=== PATIENT | male | born 1945 | race Caucasian/White ===

== ENCOUNTER 2025-04-16 21:37 | Inpatient (IN) | payer OTHER ==
[~2025-04-16] VITALS: Ht 182.9 cm; Wt 90.4 kg
[2025-04-16 22:40] LABS: PLATELET COUNT (AUTO) 210 K/uL (150-450); RED BLOOD CELL COUNT(AUTO) 2.93 MIL/uL (4.5-6.0); RED CELL DISTRIBUTION WIDTH 15.2 % (11.5-15.0); WHITE BLOOD COUNT (AUTO) 7.7 K/uL (4.3-11.0)
[2025-04-16 22:41] LABS: ABG BASE EXCESS 6.4 mmol/L (-2.0-3.0); ABG OXYGEN SATURATION 99.5 % (94.0-98.0); ABG PCO2 55.7 mmHg (35.0-48.0); ABG PH 7.385 (7.350-7.450); ABG PO2 316.7 mmHg (83.0-108.0); ABG TOTAL HEMOGLOBIN 10.0 G/dL (13.5-17.5); FRACTIONATED INSPIRED OXYGEN 100.0 %; PEEP,BG 5 cm H2O; SET RATE, BG 20.0; SITE, ABG LEFT RADIAL; VT, ABG 550 mL
[2025-04-16 22:49] LABS: CALCIUM, SERUM 9.7 mg/dL (8.5-10.1); CREATININE 0.7 mg/dL (0.6-1.3); SODIUM SERUM 136 mmol/L (136-145); UREA NITROGEN, BLOOD 28 mg/dL (7-18)
[2025-04-16 22:49] LABS: APPEARANCE,URINE SLIGHTLY CLOUDY (CLEAR); BLOOD, URINE 3+ Ery/uL (NEGATIVE); LEUKOCYTE ESTERASE ,URINE TRACE (NEGATIVE); NITRITE, URINE NEGATIVE (NEGATIVE); UGLUCOSE NEGATIVE (NEGATIVE)
[2025-04-16 22:53] LABS: INR 1.18 (0.91-1.10)
[2025-04-16 23:05] LABS: ADD URINE CULTURE YES; SQUAMOUS EPITHELIAL CELL,UR 0-2 /HPF (None Seen); YEAST,URINE Moderate /HPF (None Seen)
[2025-04-16 23:10] LABS: LACTIC ACID 1.3 mmol/L (0.4-2.0)
[2025-04-16] MEDS ORDERED: AZITHROMYCIN 500 MG VIAL ONE (23:21)
[2025-04-16] MEDS ORDERED: CEFTRIAXONE 1GM BAG (ER ONLY) 50 ML IV ONE (23:21)
[2025-04-16] MEDS ORDERED: ASPIRIN 300 MG/SUPP.RECT RC ONE (23:22)
[2025-04-16] MEDS: CEFTRIAXONE 1GM BAG (ER ONLY) 1 GM/50 ML PIGGYBACK IV ONE (23:24)
[2025-04-16] MEDS: IV NS 0.9% 500 ML BAG IV ONE (23:24)
[2025-04-16] MEDS: ASPIRIN 300 MG/SUPP.RECT RC ONE (23:25)
[2025-04-16 23:46] LABS: ASPARTATE AMINOTRANSFERASE 27 U/L (15-37); TOTAL PROTEIN, SERUM 6.6 g/dL (6.4-8.2)
[2025-04-17] MEDS ORDERED: ONDANSETRON HCL/PF 4 MG/2 ML VIAL IVP PRN
[2025-04-17] MEDS ORDERED: MAGNESIUM HYDROXIDE 30 ML UDC PO PRN
[2025-04-17] MEDS ORDERED: MAG HYDROX/AL HYDROX/SIMETH 30 ML UDC PO PRN
[2025-04-17] MEDS: AZITHROMYCIN 500 MG in IV D5W 250 ML IV ONE (00:05)
[2025-04-17] MEDS: HEPARIN SODIUM, PORCINE 5000 UNITS/1 ML VIAL SQ SCH (00:30)
[2025-04-17] MEDS ORDERED: HEPARIN SODIUM, PORCINE 5000 UNITS/1 ML VIAL ONE (05:18)
[2025-04-17 05:29] LABS: PLATELET COUNT (AUTO) 233 K/uL (150-450); RED BLOOD CELL COUNT(AUTO) 2.72 MIL/uL (4.5-6.0); RED CELL DISTRIBUTION WIDTH 14.9 % (11.5-15.0); WHITE BLOOD COUNT (AUTO) 6.2 K/uL (4.3-11.0)
[2025-04-17 05:54] LABS: ASPARTATE AMINOTRANSFERASE 22.0 U/L (15-37); CALCIUM, SERUM 9.5 mg/dL (8.5-10.1); CREATININE 0.6 mg/dL (0.6-1.3); NT-PRO BNP 4445.0 pg/mL (0-125); PHOSPHORUS 2.8 mg/dL (2.5-4.9); SODIUM SERUM 136.0 mmol/L (136-145); TOTAL PROTEIN, SERUM 6.4 g/dL (6.4-8.2); UREA NITROGEN, BLOOD 27.0 mg/dL (7-18)
[2025-04-17] MEDS ORDERED: TRAM50TA2 GT (08:32)
[2025-04-17] MEDS ORDERED: MULT-754 GT (08:32)
[2025-04-17] MEDS ORDERED: GABA250S2 GT (08:32)
[2025-04-17] MEDS ORDERED: [UNRECOGNIZED DRUG - OTHER] GT (08:32)
[2025-04-17] MEDS ORDERED: DIABETISOURCE GT (08:32)
[2025-04-17] MEDS ORDERED: APIX5TAB GT (08:32)
[2025-04-17] MEDS ORDERED: POLY17PO4 GT (08:32)
[2025-04-17] MEDS ORDERED: BISA10SU11 RC (08:32)
[2025-04-17] MEDS ORDERED: ZINC1CAP3 GT (08:32)
[2025-04-17] MEDS ORDERED: ATOR40TA GT (08:32)
[2025-04-17] MEDS ORDERED: ASCO500L2 GT (08:32)
[2025-04-17] MEDS ORDERED: TRAZ-182 GT (08:32)
[2025-04-17] MEDS ORDERED: PANT40SU2 GT (08:32)
[2025-04-17] MEDS ORDERED: FURO-144 GT (08:32)
[2025-04-17] MEDS ORDERED: MAGN400O6 GT (08:32)
[2025-04-17] MEDS ORDERED: NA P133E RC (08:32)
[2025-04-17] MEDS ORDERED: MIDO5TAB4 GT (08:32)
[2025-04-17] MEDS ORDERED: INDO50CA91 GT (08:32)
[2025-04-17] MEDS ORDERED: ACET-2070 GT (08:32)
[2025-04-17] MEDS ORDERED: OXYC5TAB3 GT (08:32)
[2025-04-17] MEDS ORDERED: TERA2CAP4 GT (08:32)
[2025-04-17] MEDS ORDERED: SENN-291 GT (08:32)
[2025-04-17] MEDS ORDERED: CHLO473M2 MM (08:32)
[2025-04-17] MEDS ORDERED: ALBU2.5V38 IH ×2 (08:32)
[2025-04-17] MEDS ORDERED: CEFT2VIA64 IV (08:32)
[2025-04-17] MEDS ORDERED: AMIO400T5 GT (08:32)
[2025-04-17] MEDS ORDERED: POTASSIUM GT (08:32)
[2025-04-17] MEDS ORDERED: METO25TA6 GT (08:32)
[2025-04-17] MEDS: PANTOPRAZOLE 40 MG VIAL IV SCH (09:44)
[2025-04-17 09:56] VITALS: BP 119/73; TEMP 99.9; O2SAT 99
[2025-04-17] MEDS ORDERED: DEXTROSE 50%-WATER 50 ML DISP.SYRIN IV PRN (10:30)
[2025-04-17] MEDS ORDERED: MAGNESIUM HYDROXIDE 30 ML UDC GT PRN (10:30)
[2025-04-17] MEDS ORDERED: IPRATROPIUM NEB FS 0.5 MG/2.5 ML AMPUL.NEB NEB PRN ×2 (10:30)
[2025-04-17] MEDS ORDERED: oxyCODONE/APAP (5/325 MG) 1 UDTAB TABLET GT PRN (10:30)
[2025-04-17] MEDS ORDERED: ALBUTEROL FS 2.5 MG/3 ML VIAL.NEB NEB PRN ×2 (10:30)
[2025-04-17] MEDS ORDERED: NA PHOS,M-B/NA PHOS,DI-BA 1 EA ENEMA RC PRN (10:30)
[2025-04-17] MEDS ORDERED: BISACODYL SUPP (10 MG) 10 MG/SUPP.RECT SUPP.RECT RC PRN (10:30)
[2025-04-17] MEDS ORDERED: TRAMADOL HCL 50 MG TABLET GT PRN (10:30)
[2025-04-17] MEDS ORDERED: INDOMETHACIN 50 MG CAPSULE GT PRN (11:00)
[2025-04-17] MEDS: CEFEPIME 2 GM in IV D5W 100 ML IV SCH (11:58)
[2025-04-17] MEDS: BLOOD SUGAR DIAGNOSTIC 1 EACH STRIP IN SCH (12:02)
[2025-04-17] MEDS: GLUCERNA 1.2 1,000 ML BOTTLE NG PRN (12:13)
[2025-04-17] MEDS ORDERED: INDOMETHACIN 25 MG CAPSULE GT PRN (12:30)
[2025-04-17] MEDS: MIDODRINE HCL (5MG) 5 MG TABLET GT SCH (12:51)
[2025-04-17 13:20] LABS: IRON, SERUM 10.0 ug/dl (50-175)
[2025-04-17 13:36] LABS: LDL 28.0 mg/dL (0-99)
[2025-04-17 16:00] VITALS: BP 100/56; TEMP 100.4; O2SAT 98
[2025-04-17] MEDS: ACETAMINOPHEN 325 MG TABLET PO PRN (16:24)
[2025-04-17] MEDS: NEUTRA PHOS 1 POWD.PACKET GT SCH (16:25)
[2025-04-17] MEDS: SENNOSIDES/DOCUSATE SODIUM 1 TAB TABLET GT SCH (16:25)
[2025-04-17] MEDS: POLYETHYLENE GLYCOL 3350 17 GM POWD.PACK GT SCH (16:25)
[2025-04-17] MEDS: GABAPENTIN 300 MG CAPSULE GT SCH (16:26)
[2025-04-17] MEDS: APIXABAN 5 MG TABLET GT SCH (16:27)
[2025-04-17 20:00] VITALS: BP 91/55; TEMP 99; O2SAT 98
[2025-04-17] MEDS ORDERED: CEFEPIME 1 GM in IV D5W 50 ML IV SCH (21:00)
[2025-04-17] MEDS: METOPROLOL TARTRATE 25 MG TABLET GT SCH (21:00)
[2025-04-17] MEDS ORDERED: CEFTRIAXONE 1 G in IV D5W 50 ML IV SCH (21:00)
[2025-04-17] MEDS: TERAZOSIN HCL 1 MG CAPSULE GT SCH (21:17)
[2025-04-17] MEDS: TRAZODONE 50 MG TABLET GT SCH (21:17)
[2025-04-17] MEDS: ATORVASTATIN 40 MG TABLET GT SCH (21:18)
[2025-04-17] MEDS: AZITHROMYCIN 500 MG in IV D5W 250 ML IV SCH (21:19)
[2025-04-17] MEDS: CHLORHEXIDINE GLUCONATE 15 ML UDC MM SCH (21:32)
[2025-04-17] MEDS ORDERED: AZITHROMYCIN 500 MG in IV D5W 250 ML IV SCH (22:00)
[2025-04-17] MEDS: INSULIN REGULAR, HUMAN 100 UNIT/ML 3 ML VIAL SQ PRN (23:00)
[2025-04-18] VITALS: BP 99/61; TEMP 98.1; O2SAT 96
[2025-04-18 04:00] VITALS: BP 109/67; TEMP 98.1; O2SAT 100
[2025-04-18 08:00] VITALS: BP 106/66; TEMP 97.5; O2SAT 100
[2025-04-18 08:19] LABS: ABG BASE EXCESS 4.2 mmol/L (-2.0-3.0); ABG OXYGEN SATURATION 99.1 % (94.0-98.0); ABG PCO2 30.7 mmHg (35.0-48.0); ABG PH 7.554 (7.350-7.450); ABG PO2 142.8 mmHg (83.0-108.0); ABG TOTAL HEMOGLOBIN 8.4 G/dL (13.5-17.5); FRACTIONATED INSPIRED OXYGEN 50.0 %; PEEP,BG 5 cm H2O; SET RATE, BG 20.0; SITE, ABG RIGHT RADIAL; VT, ABG 550 mL
[2025-04-18] MEDS: ZINC SULFATE 220 MG CAPSULE GT SCH (09:17)
[2025-04-18] MEDS: DOXYCYCLINE HYCLATE (100 MG) 100 MG TABLET PO SCH (09:17)
[2025-04-18] MEDS: FUROSEMIDE 40 MG TABLET GT SCH (09:17)
[2025-04-18] MEDS: PANTOPRAZOLE 40 MG/PACK PACK GT SCH (09:17)
[2025-04-18] MEDS: ASCORBIC ACID 500 MG TABLET GT SCH (09:18)
[2025-04-18] MEDS: AMIODARONE HCL 200 MG TABLET GT SCH (09:18)
[2025-04-18] MEDS: THERAHONEY GEL 1.5 OZ TUBE TP SCH (09:20)
[2025-04-18] MEDS: MULTIVITAMINS,THERAGRAN 1 UDTAB TABLET GT SCH (09:20)
[2025-04-18] MEDS: FLUCONAZOLE (100 MG) 100 MG TABLET PO SCH (09:23)
[2025-04-18 12:00] VITALS: BP 105/67; TEMP 98.4; O2SAT 100
[2025-04-18] MEDS: ACETYLCYSTEINE 10% SOLN 400 MG/4 ML VIAL NEB SCH (15:05)
[2025-04-18 16:00] VITALS: BP 108/68; TEMP 98.2; O2SAT 100
[2025-04-18 20:00] VITALS: BP 108/60; TEMP 98.1; O2SAT 99
[2025-04-19] VITALS: BP 98/64; TEMP 98.3; O2SAT 100
[2025-04-19 04:00] VITALS: BP 112/69; TEMP 98.4; O2SAT 100
[2025-04-19 08:00] VITALS: BP 106/67; TEMP 98.8; O2SAT 100
[2025-04-19 12:00] VITALS: BP 106/67; TEMP 98.8; O2SAT 100
[2025-04-19 16:00] VITALS: BP 106/67; TEMP 98.8; O2SAT 100
[2025-04-19 20:00] VITALS: BP 113/69; TEMP 98.2; O2SAT 100
[2025-04-20] VITALS (7 sets, daily range): BP systolic 103–128; BP diastolic 63–76; TEMP 97.7–99; O2SAT 100
[2025-04-20] MEDS: IPRATROPIUM NEB FS 0.5 MG/2.5 ML AMPUL.NEB NEB SCH (09:23)
[2025-04-21] VITALS: BP 108/67; TEMP 98.2; O2SAT 100
[2025-04-21 04:00] VITALS: BP 112/66; TEMP 99; O2SAT 100
[2025-04-21 08:00] VITALS: BP 110/88; TEMP 98.2; O2SAT 100
[2025-04-21 12:00] VITALS: BP 103/64; TEMP 98.2; O2SAT 98
[2025-04-21 16:00] VITALS: BP 132/59; TEMP 98.4; O2SAT 99
[2025-04-21] MEDS: PROSOURCE / PROSTAT (PYXIS) 30 ML UDC GT SCH (16:10)
[2025-04-21 20:00] VITALS: BP_SYST 107; BP_SYST 126; BP_DIAS 69; BP_DIAS 73; TEMP 98.4; TEMP 99; O2SAT 97; O2SAT 99
[2025-04-21] MEDS: GLUCERNA 1.2 1,000 ML BOTTLE NG PRN (23:51)
[2025-04-22] VITALS: BP_SYST 105; BP_SYST 107; BP_SYST 148; BP_DIAS 67; BP_DIAS 69; BP_DIAS 77; TEMP 98.6; TEMP 98.8; TEMP 99; O2SAT 98; O2SAT 99
[2025-04-22 04:00] VITALS: BP 117/62; TEMP 98.2; O2SAT 100
[2025-04-22 08:00] VITALS: BP 108/61; TEMP 97.9; O2SAT 100
[2025-04-22 12:00] VITALS: BP 102/64; TEMP 98.6; O2SAT 100
[2025-04-22 16:00] VITALS: BP 105/63; TEMP 98.4; O2SAT 100
[2025-04-22 20:00] VITALS: BP 106/68; TEMP 98.8; O2SAT 100
[2025-04-23] VITALS: BP 94/66; TEMP 98.2; O2SAT 100
[2025-04-23 04:00] VITALS: BP 112/71; TEMP 98.2; O2SAT 100
[2025-04-23 07:26] LABS: CALCIUM, SERUM 10.0 mg/dL (8.5-10.1); CREATININE 0.8 mg/dL (0.6-1.3); SODIUM SERUM 143.0 mmol/L (136-145); UREA NITROGEN, BLOOD 23.0 mg/dL (7-18)
[2025-04-23 08:00] VITALS: BP 106/66; TEMP 97.7; O2SAT 100
[2025-04-23 08:15] LABS: PLATELET COUNT (AUTO) 259 K/uL (150-450); RED BLOOD CELL COUNT(AUTO) 2.78 MIL/uL (4.5-6.0); RED CELL DISTRIBUTION WIDTH 15.3 % (11.5-15.0); WHITE BLOOD COUNT (AUTO) 4.9 K/uL (4.3-11.0)
[2025-04-23] MEDS: ACETAMINOPHEN 650 MG/20.3 ML UDC GT PRN (09:56)
[2025-04-23 12:00] VITALS: BP 93/61; TEMP 98.4; O2SAT 100
[2025-04-23 16:00] VITALS: BP 94/59; TEMP 98.4; O2SAT 100
[2025-04-23 20:00] VITALS: BP 96/63; TEMP 99; O2SAT 99
[2025-04-24] VITALS: BP 94/63; TEMP 98.4; O2SAT 100
[2025-04-24 04:00] VITALS: BP 95/58; TEMP 98.6; O2SAT 99
[2025-04-24 07:47] LABS: CALCIUM, SERUM 9.8 mg/dL (8.5-10.1); CREATININE 0.8 mg/dL (0.6-1.3); SODIUM SERUM 142.0 mmol/L (136-145); UREA NITROGEN, BLOOD 27.0 mg/dL (7-18)
[2025-04-24 08:00] VITALS: BP 109/70; TEMP 98.3; O2SAT 100
[2025-04-24 08:23] LABS: PLATELET COUNT (AUTO) 256 K/uL (150-450); RED BLOOD CELL COUNT(AUTO) 2.85 MIL/uL (4.5-6.0); RED CELL DISTRIBUTION WIDTH 15.2 % (11.5-15.0); WHITE BLOOD COUNT (AUTO) 5.4 K/uL (4.3-11.0)
[2025-04-24 12:00] VITALS: BP 97/62; TEMP 97.1; O2SAT 100
[2025-04-24 16:00] VITALS: BP 110/65; TEMP 97.5; O2SAT 100
[2025-04-24] MEDS: GABAPENTIN 300 MG CAPSULE GT SCH (16:43)
[2025-04-24 20:00] VITALS: BP 113/66; TEMP 98.2; O2SAT 100
[2025-04-25] VITALS: BP 110/66; TEMP 98.2; O2SAT 100
[2025-04-25 04:00] VITALS: BP 121/66; TEMP 97.9; O2SAT 100
[2025-04-25 08:00] VITALS: BP 127/79; TEMP 97.5; O2SAT 100
[2025-04-25] MEDS ORDERED: ALBUT2 NEB (11:26)
[2025-04-25] MEDS ORDERED: INDO-13 GT (11:26)
[2025-04-25] MEDS ORDERED: COLL30OI TP (11:26)
[2025-04-25] MEDS ORDERED: GABA300C GT (11:26)
[2025-04-25] MEDS ORDERED: Prosource GT (11:26)
[2025-04-25] MEDS ORDERED: ACET1OOV6 NEB (11:26)
[2025-04-25] MEDS ORDERED: IPRA0.2S9 NEB ×2 (11:26)
[2025-04-25 12:00] VITALS: BP 131/77; TEMP 98.1; O2SAT 100
[2025-04-25 16:00] VITALS: BP 97/59; TEMP 98; O2SAT 100
[2025-04-25 20:55] VITALS: BP 117/67; TEMP 100.2; O2SAT 100
[2025-04-26] VITALS: BP 107/66; TEMP 97.5; O2SAT 100
[2025-04-26 04:00] VITALS: BP 113/68; TEMP 98.8; O2SAT 100
[2025-04-26 07:43] LABS: PLATELET COUNT (AUTO) 220 K/uL (150-450); RED BLOOD CELL COUNT(AUTO) 2.80 MIL/uL (4.5-6.0); RED CELL DISTRIBUTION WIDTH 15.5 % (11.5-15.0); WHITE BLOOD COUNT (AUTO) 5.3 K/uL (4.3-11.0)
[2025-04-26 07:50] LABS: CALCIUM, SERUM 10.0 mg/dL (8.5-10.1); CREATININE 0.8 mg/dL (0.6-1.3); SODIUM SERUM 145.0 mmol/L (136-145); UREA NITROGEN, BLOOD 28.0 mg/dL (7-18)
[2025-04-26 08:00] VITALS: BP 109/68; TEMP 98.3; O2SAT 100
[2025-04-26 12:00] VITALS: BP 99/64; TEMP 98.1; O2SAT 100
[2025-04-26 16:00] VITALS: BP 101/67; TEMP 98.4; O2SAT 100
== END 2025-04-26 18:58 | DRG 673 ==
LOC: ER 21:52 → TELE IN 04-17 06:11 → TELE-TD 04-17 08:40 → TELE1 04-19 08:26
PROVIDERS: ADMIT Nurse Practitioner Family; ATTEND Nurse Practitioner Acute Care
PROC: 5A1955Z Respiratory Ventilation, Greater than 96 Consecutive Hours (ICD-10-PCS; principal; 2025-04-17)
PROC: 0BH18EZ Insertion of Endotracheal Airway into Trachea, Via Natural or Artificial Opening Endoscopic (ICD-10-PCS; 2025-04-17)
PROC: 0JB70ZZ Excision of Back Subcutaneous Tissue and Fascia, Open Approach (ICD-10-PCS; 2025-04-22)
DX: T83.511A Infection and inflammatory reaction due to indwelling urethral catheter, initial encounter (principal); A41.9 Sepsis, unspecified organism; G93.41 Metabolic encephalopathy; I21.A1 Myocardial infarction type 2; J15.69 Pneumonia due to other Gram-negative bacteria; L89.153 Pressure ulcer of sacral region, stage 3; J96.21 Acute and chronic respiratory failure with hypoxia; I50.33 Acute on chronic diastolic (congestive) heart failure; I13.0 Hypertensive heart and chronic kidney disease with heart failure and stage 1 through stage 4 chronic kidney disease, or unspecified chronic kidney disease; D68.59 Other primary thrombophilia; E44.0 Moderate protein-calorie malnutrition; J98.11 Atelectasis; Z99.11 Dependence on respirator [ventilator] status; E66.2 Morbid (severe) obesity with alveolar hypoventilation; B37.49 Other urogenital candidiasis; Y84.6 Urinary catheterization as the cause of abnormal reaction of the patient, or of later complication, without mention of misadventure at the time of the procedure; Y92.129 Unspecified place in nursing home as the place of occurrence of the external cause; Y73.8 Miscellaneous gastroenterology and urology devices associated with adverse incidents, not elsewhere classified; I12.9 Hypertensive chronic kidney disease with stage 1 through stage 4 chronic kidney disease, or unspecified chronic kidney disease; N18.9 Chronic kidney disease, unspecified; D63.8 Anemia in other chronic diseases classified elsewhere; E88.09 Other disorders of plasma-protein metabolism, not elsewhere classified; E78.5 Hyperlipidemia, unspecified; I25.10 Atherosclerotic heart disease of native coronary artery without angina pectoris; R13.10 Dysphagia, unspecified; Z74.01 Bed confinement status; E11.40 Type 2 diabetes mellitus with diabetic neuropathy, unspecified; K21.9 Gastro-esophageal reflux disease without esophagitis; Z79.01 Long term (current) use of anticoagulants; Z93.0 Tracheostomy status; Z95.0 Presence of cardiac pacemaker; M24.574 Contracture, right foot; M24.575 Contracture, left foot; Z68.27 Body mass index [BMI] 27.0-27.9, adult; T17.990A Other foreign object in respiratory tract, part unspecified in causing asphyxiation, initial encounter; I48.91 Unspecified atrial fibrillation; R60.9 Edema, unspecified; L89.890 Pressure ulcer of other site, unstageable; Z87.81 Personal history of (healed) traumatic fracture; Z93.1 Gastrostomy status; E11.65 Type 2 diabetes mellitus with hyperglycemia; E11.22 Type 2 diabetes mellitus with diabetic chronic kidney disease
CPT/HCPCS: 31720; 36415; 36600; 71045-TC; 71250-TC; 80048-TC; 80061-TC; 80076-TC; 81001; 82728-TC; 82803-TC; 82962-TC; 83540-TC; 83605-TC; 83735-TC; 83880; 84100-TC; 84439-TC; 84443-TC; 84484-TC; 85025-TC; 85730-TC; 87040-TC; 87070-TC; 87081-TC; 87086-TC; 87205-TC; 93307-TC; 93971-TC; 94002-TC; 94003-TC; 94668-TC; 94760-TC; 94761-TC; 94762-TC; 94799-TC; 99082-TC; A4223; A4623; A6213; A6253; A6403; G0378; J0456; J0692; J0696; J1644; J1815; J2470; J7040; J7050; J7060

== ENCOUNTER 2025-07-05 19:11 | Inpatient (IN) | payer OTHER ==
[~2025-07-05] VITALS: Ht 172.7 cm; Wt 74.8 kg
[~2025-07-05 19:11] MED LIST: ACET-2070 GT; ACET1OOV6 NEB; ALBU2.5V38 IH; ALBUT2 NEB; AMIO400T5 GT; APIX5TAB GT; ASCO500L2 GT; ATOR40TA GT; BISA10SU11 RC; CHLO473M2 MM; COLL30OI TP; DIABETISOURCE GT; FURO-144 GT; GABA250S2 GT; GABA300C GT; INDO-13 GT; INDO50CA91 GT; IPRA0.2S9 NEB; MAGN400O6 GT; METO25TA6 GT; MIDO5TAB4 GT; MULT-754 GT; NA P133E RC; OXYC5TAB3 GT; PANT40SU2 GT; PIPERACILLIN /TAZOBACTAM 3.375 G in IV D5W 50 ML IV NR; POLY17PO4 GT; POTASSIUM GT; Prosource GT; SENN-291 GT; TERA2CAP4 GT; TRAM50TA2 GT; TRAZ-182 GT; ZINC1CAP3 GT; [UNRECOGNIZED DRUG - OTHER] GT
[2025-07-05 20:19] LABS: PLATELET COUNT (AUTO) 285 K/uL (150-450); RED BLOOD CELL COUNT(AUTO) 2.79 MIL/uL (4.5-6.0); RED CELL DISTRIBUTION WIDTH 22.7 % (11.5-15.0); WHITE BLOOD COUNT (AUTO) 4.3 K/uL (4.3-11.0)
[2025-07-05 20:25] LABS: CALCIUM, SERUM 9.5 mg/dL (8.5-10.1); CREATININE 0.6 mg/dL (0.6-1.3); SODIUM SERUM 142.0 mmol/L (136-145); UREA NITROGEN, BLOOD 26.0 mg/dL (7-18)
[2025-07-05 20:31] LABS: ASPARTATE AMINOTRANSFERASE 21.0 U/L (15-37); TOTAL PROTEIN, SERUM 7.0 g/dL (6.4-8.2)
[2025-07-05 20:33] LABS: INR 1.2 (0.91-1.10)
[2025-07-05] MEDS ORDERED: VANCOMYCIN 1 GM /D5W 250 ML PB IV ONE (21:38)
[2025-07-05] MEDS ORDERED: PIPERACI/TAZO 3.375GM/D5W 50ML PB IV ONE (21:38)
[2025-07-05] MEDS: PIPERACILLIN /TAZOBACTAM 3.375 G in IV D5W 50 ML IV ONE (21:46)
[2025-07-05 21:54] LABS: LACTIC ACID 1.0 mmol/L (0.4-2.0)
[2025-07-05 21:57] LABS: NT-PRO BNP 3265.0 pg/mL (0-125)
[2025-07-05] MEDS ORDERED: ALBUTEROL FS 2.5 MG/3 ML VIAL.NEB NEB PRN (22:00)
[2025-07-05] MEDS ORDERED: Z GUARD REMEDY 4 OZ OINT TP PRN (22:00)
[2025-07-05] MEDS ORDERED: DEXTROSE 50%-WATER 50 ML DISP.SYRIN IV PRN (22:00)
[2025-07-05] MEDS ORDERED: ONDANSETRON HCL/PF 4 MG/2 ML VIAL IVP PRN (22:00)
[2025-07-05] MEDS ORDERED: DOSING PER PHARMACY-ZOSYN IV 1 EA EA XX PRN (22:00)
[2025-07-05] MEDS ORDERED: MAG HYDROX/AL HYDROX/SIMETH 30 ML UDC PO PRN (22:00)
[2025-07-05] MEDS ORDERED: ACETAMINOPHEN 325 MG TABLET PO PRN (22:00)
[2025-07-05] MEDS ORDERED: DOSING PER PHARMACY-VANCOMYCIN IV XX PRN (22:00)
[2025-07-05] MEDS ORDERED: IPRATROPIUM NEB FS 0.5 MG/2.5 ML AMPUL.NEB NEB PRN (22:00)
[2025-07-05] MEDS ORDERED: HYDROCODONE/APAP 5/325MG TABLET GT PRN (22:00)
[2025-07-05] MEDS ORDERED: MAGNESIUM HYDROXIDE 30 ML UDC PO PRN (22:00)
[2025-07-05] MEDS: VANCOMYCIN 1 GM in IV D5W 250 ML IV ONE (22:02)
[2025-07-05] MEDS ORDERED: IOHEXOL-350 100 ML VIAL IV ONE (22:31)
[2025-07-05] MEDS ORDERED: IV NS 0.9% 250 ML IV ONE (22:32)
[2025-07-05] MEDS ORDERED: CT SWABBABLE VALVE TRANS SET 1 EA INFUS.SET MC ONE (22:32)
[2025-07-06] VITALS (14 sets, daily range): BP systolic 99–123; BP diastolic 59–71; TEMP 97.6–100.4; O2SAT 98–100
[2025-07-06] MEDS: BLOOD SUGAR DIAGNOSTIC 1 EACH STRIP IN SCH
[2025-07-06] MEDS: FUROSEMIDE 20 MG/2 ML VIAL IV ONE (00:59)
[2025-07-06] MEDS: INSULIN REGULAR, HUMAN 100 UNIT/ML 3 ML VIAL SQ PRN (01:10)
[2025-07-06] MEDS ORDERED: PIPERACILLIN /TAZOBACTAM 3.375 G in IV D5W 50 ML IV NR (02:01)
[2025-07-06] MEDS: PIPERACILLIN /TAZOBACTAM 3.375 G in IV D5W 50 ML IV ONE (02:11)
[2025-07-06] MEDS: PIPERACI/TAZO 3.375GM/D5W 50ML PB IV ONE (02:17)
[2025-07-06] MEDS: GLUCERNA 1.2 1,000 ML BOTTLE NG PRN (02:19)
[2025-07-06] MEDS: MIDODRINE HCL (5MG) 5 MG TABLET GT SCH (05:33)
[2025-07-06 07:56] LABS: PLATELET COUNT (AUTO) 324 K/uL (150-450); RED BLOOD CELL COUNT(AUTO) 2.97 MIL/uL (4.5-6.0); RED CELL DISTRIBUTION WIDTH 22.7 % (11.5-15.0); WHITE BLOOD COUNT (AUTO) 5.8 K/uL (4.3-11.0)
[2025-07-06 08:45] LABS: CALCIUM, SERUM 9.5 mg/dL (8.5-10.1); CREATININE 0.7 mg/dL (0.6-1.3); PHOSPHORUS 3.5 mg/dL (2.5-4.9); SODIUM SERUM 142.0 mmol/L (136-145); UREA NITROGEN, BLOOD 24.0 mg/dL (7-18)
[2025-07-06 08:46] LABS: LDL 41.0 mg/dL (0-99)
[2025-07-06] MEDS ORDERED: ACET125T3 GT (08:52)
[2025-07-06] MEDS ORDERED: IPRA0.2S49 IH (08:52)
[2025-07-06] MEDS ORDERED: NUT.237L31 GT (08:52)
[2025-07-06] MEDS ORDERED: ATOR10TA GT (08:52)
[2025-07-06] MEDS ORDERED: MULT9LIQ6 GT (08:52)
[2025-07-06] MEDS ORDERED: POTASSIUM CHLORIDE GT (08:52)
[2025-07-06] MEDS ORDERED: DOCU100C36 GT (08:52)
[2025-07-06] MEDS ORDERED: COLL30OI TP (08:52)
[2025-07-06] MEDS: PROSOURCE / PROSTAT (PYXIS) 30 ML UDC GT SCH (08:59)
[2025-07-06] MEDS: ZINC SULFATE 220 MG CAPSULE GT SCH (09:02)
[2025-07-06] MEDS: PANTOPRAZOLE 40 MG VIAL IV SCH (09:02)
[2025-07-06] MEDS: VANCOMYCIN 1 GM in IV D5W 250ml IV SCH (10:54)
[2025-07-06] MEDS: POTASSIUM CL. PREMIX PERIPHER. 50 ML IV SCH (11:43)
[2025-07-06] MEDS: PIPERACILLIN /TAZOBACTAM 3.375 G in IV D5W 100 ML IV SCH (13:02)
[2025-07-07] VITALS (12 sets, daily range): BP systolic 97–112; BP diastolic 59–72; TEMP 97.6–99.3; O2SAT 99–100
[2025-07-07 07:46] LABS: PLATELET COUNT (AUTO) 292 K/uL (150-450); RED BLOOD CELL COUNT(AUTO) 2.87 MIL/uL (4.5-6.0); RED CELL DISTRIBUTION WIDTH 22.8 % (11.5-15.0); WHITE BLOOD COUNT (AUTO) 3.8 K/uL (4.3-11.0)
[2025-07-07 08:23] LABS: ASPARTATE AMINOTRANSFERASE 22 U/L (15-37); CALCIUM, SERUM 9.4 mg/dL (8.5-10.1); CREATININE 0.7 mg/dL (0.6-1.3); PHOSPHORUS 3.1 mg/dL (2.5-4.9); SODIUM SERUM 142 mmol/L (136-145); TOTAL PROTEIN, SERUM 6.7 g/dL (6.4-8.2); UREA NITROGEN, BLOOD 24 mg/dL (7-18)
[2025-07-07] MEDS: THERAHONEY GEL 1.5 OZ TUBE TP SCH (13:07)
[2025-07-08] VITALS (11 sets, daily range): BP systolic 98–119; BP diastolic 60–71; TEMP 97.3–98.2; O2SAT 98–100
[2025-07-08 07:41] LABS: PLATELET COUNT (AUTO) 303 K/uL (150-450); RED BLOOD CELL COUNT(AUTO) 3.01 MIL/uL (4.5-6.0); RED CELL DISTRIBUTION WIDTH 23.0 % (11.5-15.0); WHITE BLOOD COUNT (AUTO) 4.2 K/uL (4.3-11.0)
[2025-07-08 07:48] LABS: CALCIUM, SERUM 10.0 mg/dL (8.5-10.1); CREATININE 0.8 mg/dL (0.6-1.3); SODIUM SERUM 144.0 mmol/L (136-145); UREA NITROGEN, BLOOD 23.0 mg/dL (7-18)
[2025-07-08] MEDS: PANTOPRAZOLE 40 MG/PACK PACK GT SCH (09:04)
[2025-07-08] MEDS ORDERED: POTASSIUM CL. PREMIX PERIPHER. 50 ML IV SCH (10:30)
[2025-07-08] MEDS ORDERED: NA PHOS,M-B/NA PHOS,DI-BA 1 EA ENEMA RC PRN (12:30)
[2025-07-08] MEDS ORDERED: TRAMADOL HCL 50 MG TABLET GT PRN (12:30)
[2025-07-08] MEDS ORDERED: MAGNESIUM HYDROXIDE 30 ML UDC GT PRN (12:30)
[2025-07-08] MEDS ORDERED: Medication Not On Formulary EA (Acetaminophen 20 ML) GT PRN (12:30)
[2025-07-08] MEDS ORDERED: TRAZODONE 50 MG TABLET GT PRN (12:30)
[2025-07-08] MEDS ORDERED: INDOMETHACIN 50 MG CAPSULE GT PRN (12:30)
[2025-07-08] MEDS ORDERED: BISACODYL SUPP (10 MG) 10 MG/SUPP.RECT SUPP.RECT RC PRN (12:30)
[2025-07-08] MEDS: POTASSIUM CHLORIDE 20 MEQ POWDER PACKET GT ONE (12:39)
[2025-07-08] MEDS: MIDODRINE HCL (5MG) 5 MG TABLET GT SCH (12:40)
[2025-07-08] MEDS ORDERED: oxyCODONE IR immediate release 5 MG TABLET GT PRN (13:00)
[2025-07-08 16:09] LABS: ABG BASE EXCESS 3.3 mmol/L (-2.0-3.0); ABG OXYGEN SATURATION 95.2 % (94.0-98.0); ABG PCO2 34.1 mmHg (35.0-48.0); ABG PH 7.508 (7.350-7.450); ABG PO2 78.5 mmHg (83.0-108.0); ABG TOTAL HEMOGLOBIN 7.9 G/dL (13.5-17.5); FLOW, BLOOD GAS 5.00 L/min (0.00-30.00); FRACTIONATED INSPIRED OXYGEN 28.0 %; SITE, ABG RIGHT RADIAL
[2025-07-08] MEDS ORDERED: APIXABAN 5 MG TABLET GT SCH (17:00)
[2025-07-08] MEDS ORDERED: SENNOSIDES/DOCUSATE SODIUM 1 UDTAB TABLET GT SCH ×2 (17:00→21:00)
[2025-07-08] MEDS ORDERED: POLYETHYLENE GLYCOL 3350 17 GM POWD.PACK GT SCH (17:00)
[2025-07-08] MEDS: POLYETHYLENE GLYCOL 3350 17 GM POWD.PACK GT SCH (20:20)
[2025-07-08] MEDS: SENNOSIDES/DOCUSATE SODIUM 1 TAB TABLET GT SCH (20:21)
[2025-07-08] MEDS: APIXABAN 5 MG TABLET GT SCH (20:22)
[2025-07-08] MEDS: METOPROLOL TARTRATE 25 MG TABLET GT SCH (20:24)
[2025-07-08] MEDS: CHLORHEXIDINE GLUCONATE 15 ML UDC MM SCH (20:25)
[2025-07-08] MEDS ORDERED: SENNOSIDES 8.6 MG TABLET GT SCH (21:00)
[2025-07-08] MEDS: TERAZOSIN HCL 1 MG CAPSULE GT SCH (21:04)
[2025-07-08] MEDS: ATORVASTATIN 10 MG TABLET GT SCH (21:04)
[2025-07-09] VITALS (12 sets, daily range): BP systolic 101–121; BP diastolic 57–66; TEMP 97.5–98.9; O2SAT 98–100
[2025-07-09 07:35] LABS: PLATELET COUNT (AUTO) 281 K/uL (150-450); RED BLOOD CELL COUNT(AUTO) 2.93 MIL/uL (4.5-6.0); RED CELL DISTRIBUTION WIDTH 22.6 % (11.5-15.0); WHITE BLOOD COUNT (AUTO) 3.7 K/uL (4.3-11.0)
[2025-07-09 08:06] LABS: CALCIUM, SERUM 10.0 mg/dL (8.5-10.1); CREATININE 0.8 mg/dL (0.6-1.3); SODIUM SERUM 146.0 mmol/L (136-145); UREA NITROGEN, BLOOD 21.0 mg/dL (7-18)
[2025-07-09] MEDS: ASCORBIC ACID 500 MG TABLET GT SCH (08:38)
[2025-07-09] MEDS: MULTIVIT W/MINERALS 1 TAB TABLET GT SCH (08:38)
[2025-07-09] MEDS: THERAHONEY GEL 1.5 OZ TUBE TP SCH (08:39)
[2025-07-09] MEDS: AMIODARONE HCL 200 MG TABLET GT SCH (08:45)
[2025-07-09] MEDS ORDERED: PANTOPRAZOLE 40 MG/PACK PACK GT SCH (09:00)
[2025-07-09] MEDS: ACETAMINOPHEN 650 MG/20.3 ML UDC GT PRN (09:12)
[2025-07-09] MEDS: FUROSEMIDE 40 MG TABLET GT SCH (09:51)
[2025-07-09] MEDS: POTASSIUM CHLORIDE 20 MEQ POWDER PACKET GT ONE (09:51)
[2025-07-09] MEDS: GABAPENTIN 100 MG CAPSULE GT SCH (16:16)
[2025-07-09] MEDS: GABAPENTIN 300 MG CAPSULE GT SCH (21:35)
[2025-07-10] VITALS (11 sets, daily range): BP systolic 92–114; BP diastolic 59–67; TEMP 97.5–98.6; O2SAT 97–100
[2025-07-10 07:40] LABS: PLATELET COUNT (AUTO) 264 K/uL (150-450); RED BLOOD CELL COUNT(AUTO) 2.93 MIL/uL (4.5-6.0); RED CELL DISTRIBUTION WIDTH 21.9 % (11.5-15.0); WHITE BLOOD COUNT (AUTO) 3.7 K/uL (4.3-11.0)
[2025-07-10 08:11] LABS: CALCIUM, SERUM 9.6 mg/dL (8.5-10.1); CREATININE 0.8 mg/dL (0.6-1.3); SODIUM SERUM 147.0 mmol/L (136-145); UREA NITROGEN, BLOOD 21.0 mg/dL (7-18)
[2025-07-10 10:23] LABS: PHOSPHORUS 3.6 mg/dL (2.5-4.9)
[2025-07-10] MEDS ORDERED: LEVO750T46 PO (11:26)
== END 2025-07-10 21:20 | DRG 205 ==
LOC: ER 19:16 → ICUOV 23:25 → TELE-TD 07-06 00:02 → TELE1 07-06 14:10
PROVIDERS: ADMIT Nurse Practitioner Acute Care; ATTEND Student in an Organized Health Care Education/Training Program
DX: J95.851 Ventilator associated pneumonia (principal); I21.A1 Myocardial infarction type 2; J15.69 Pneumonia due to other Gram-negative bacteria; L89.153 Pressure ulcer of sacral region, stage 3; J96.21 Acute and chronic respiratory failure with hypoxia; E44.0 Moderate protein-calorie malnutrition; L89.616 Pressure-induced deep tissue damage of right heel; J95.01 Hemorrhage from tracheostomy stoma; Z99.11 Dependence on respirator [ventilator] status; I50.32 Chronic diastolic (congestive) heart failure; I13.0 Hypertensive heart and chronic kidney disease with heart failure and stage 1 through stage 4 chronic kidney disease, or unspecified chronic kidney disease; D63.8 Anemia in other chronic diseases classified elsewhere; N18.9 Chronic kidney disease, unspecified; I48.20 Chronic atrial fibrillation, unspecified; D68.69 Other thrombophilia; R04.2 Hemoptysis; E86.0 Dehydration; E88.09 Other disorders of plasma-protein metabolism, not elsewhere classified; K21.9 Gastro-esophageal reflux disease without esophagitis; E78.5 Hyperlipidemia, unspecified; G89.4 Chronic pain syndrome; I25.10 Atherosclerotic heart disease of native coronary artery without angina pectoris; M24.561 Contracture, right knee; M24.562 Contracture, left knee; R13.10 Dysphagia, unspecified; Z74.01 Bed confinement status; Z79.01 Long term (current) use of anticoagulants; Z93.1 Gastrostomy status; Z95.0 Presence of cardiac pacemaker; N40.0 Benign prostatic hyperplasia without lower urinary tract symptoms; Z68.25 Body mass index [BMI] 25.0-25.9, adult; Z98.890 Other specified postprocedural states; Y84.8 Other medical procedures as the cause of abnormal reaction of the patient, or of later complication, without mention of misadventure at the time of the procedure; Y92.129 Unspecified place in nursing home as the place of occurrence of the external cause
CPT/HCPCS: 31720; 36415; 36600; 71045-TC; 80048-TC; 80053-TC; 80061-TC; 80202-TC; 82803-TC; 82962-TC; 83605-TC; 83735-TC; 83880; 84100-TC; 84484-TC; 85025-TC; 85730-TC; 86850-TC; 87040-TC; 87070-TC; 87081-TC; 87186-TC; 87205-TC; 92507-TC; 92526; 94640-TC; 94664-TC; 94760-TC; 94762-TC; 94799-TC; A4223; A6213; G0378; J1815; J1938; J2470; J2543; J3373; J3480; J7050; J7060; Q9967

== ENCOUNTER 2025-07-16 22:11 | Emergency (ER) | payer OTHER, MEDICAID ==
[~2025-07-16] VITALS: Ht 177.8 cm; Wt 81.6 kg
[~2025-07-16 22:11] MED LIST changes: +ACET125T3 GT; -ACET1OOV6 NEB; -ALBU2.5V38 IH; -ALBUT2 NEB; +ATOR10TA GT; -ATOR40TA GT; -DIABETISOURCE GT; +DOCU100C36 GT; -GABA300C GT; -INDO-13 GT; +IPRA0.2S49 IH; -IPRA0.2S9 NEB; +LEVO750T46 PO; -MULT-754 GT; +MULT9LIQ6 GT; +NUT.237L31 GT; -PIPERACILLIN /TAZOBACTAM 3.375 G in IV D5W 50 ML IV NR; +POTASSIUM CHLORIDE GT; -Prosource GT; -ZINC1CAP3 GT
[2025-07-16 23:12] LABS: PLATELET COUNT (AUTO) 267 K/uL (150-450); RED BLOOD CELL COUNT(AUTO) 3.18 MIL/uL (4.5-6.0); RED CELL DISTRIBUTION WIDTH 22.1 % (11.5-15.0); WHITE BLOOD COUNT (AUTO) 4.9 K/uL (4.3-11.0)
[2025-07-16 23:18] LABS: CALCIUM, SERUM 9.9 mg/dL (8.5-10.1); CREATININE 0.7 mg/dL (0.6-1.3); SODIUM SERUM 138.0 mmol/L (136-145); UREA NITROGEN, BLOOD 26.0 mg/dL (7-18)
[2025-07-16 23:23] LABS: INR 1.13 (0.91-1.10)
[2025-07-16] MEDS: IV NS 0.9% 1,000 ML BAG IV ONE (23:28)
[2025-07-16 23:44] VITALS: O2SAT 100
[2025-07-16 23:45] VITALS: O2SAT 100
[2025-07-16 23:56] LABS: APPEARANCE,URINE BLOODY (CLEAR)
[2025-07-17 00:30] LABS: SQUAMOUS EPITHELIAL CELL,UR Few /HPF (None Seen)
[2025-07-17 02:42] LABS: APPEARANCE,URINE CLOUDY (CLEAR); BLOOD, URINE 3+ Ery/uL (NEGATIVE); LEUKOCYTE ESTERASE ,URINE 2+ (NEGATIVE); NITRITE, URINE NEGATIVE (NEGATIVE); UGLUCOSE NEGATIVE (NEGATIVE)
[2025-07-17 02:51] LABS: ADD URINE CULTURE YES; SQUAMOUS EPITHELIAL CELL,UR Few /HPF (None Seen)
[2025-07-17] MEDS ORDERED: CEFTRIAXONE 1GM BAG (ER ONLY) 50 ML IV ONE (03:22)
[2025-07-17] MEDS: CEFTRIAXONE 1GM BAG (ER ONLY) 1 GM/50 ML PIGGYBACK IV ONE (03:22)
[2025-07-17 03:45] VITALS: O2SAT 100
[2025-07-17] MEDS ORDERED: GLUCERNA 1.5 1,000 ML BOTTLE GT SCH (04:30)
[2025-07-17] MEDS ORDERED: INDOMETHACIN 50 MG CAPSULE GT PRN (04:30)
[2025-07-17] MEDS ORDERED: TRAZODONE 50 MG TABLET GT PRN (04:30)
[2025-07-17] MEDS ORDERED: MIDODRINE HCL (5MG) 5 MG TABLET ONE (05:02)
[2025-07-17] MEDS: MIDODRINE HCL (5MG) 5 MG TABLET GT SCH (05:07)
[2025-07-17] MEDS ORDERED: IPRATROPIUM NEB FS 0.5 MG/2.5 ML AMPUL.NEB IH SCH (06:00)
[2025-07-17] MEDS ORDERED: MULTIVITAMIN LIQ 5 ML UDC GT SCH (09:00)
[2025-07-17] MEDS ORDERED: ASCORBIC ACID 500 MG TABLET GT SCH (09:00)
[2025-07-17] MEDS ORDERED: MULTIVITAMINS,THERAGRAN 1 UDTAB TABLET GT SCH (09:00)
[2025-07-17] MEDS ORDERED: PANTOPRAZOLE 40 MG/PACK PACK GT SCH (09:00)
[2025-07-17] MEDS ORDERED: DOCUSATE SODIUM 100 MG CAPSULE PO SCH (09:00)
[2025-07-17] MEDS ORDERED: METOPROLOL TARTRATE 25 MG TABLET GT SCH (09:00)
[2025-07-17] MEDS ORDERED: ASCORBIC ACID SYRUP 500 MG/5 ML UDC GT SCH (09:00)
[2025-07-17] MEDS ORDERED: SENNOSIDES/DOCUSATE SODIUM 1 UDTAB TABLET GT SCH (09:00)
[2025-07-17] MEDS ORDERED: CHLORHEXIDINE GLUCONATE 15 ML UDC MM SCH (09:00)
[2025-07-17] MEDS ORDERED: ACETAZOLAMIDE 125 MG GT SCH (09:00)
[2025-07-17] MEDS ORDERED: AMIODARONE HCL 200 MG TABLET GT SCH (09:00)
[2025-07-17] MEDS ORDERED: SENNOSIDES/DOCUSATE SODIUM 1 TAB TABLET GT SCH (09:00)
[2025-07-17 10:30] VITALS: BP 99/59; TEMP 98; O2SAT 99
[2025-07-17] MEDS ORDERED: ATORVASTATIN 10 MG TABLET GT SCH (22:00)
[2025-07-17] MEDS ORDERED: TERAZOSIN HCL 1 MG CAPSULE GT SCH (22:00)
== END 2025-07-17 12:53 | disposition short-term general hospital (02) ==
LOC: ER 22:13
DX: D64.9 Anemia, unspecified (principal); N39.0 Urinary tract infection, site not specified; R31.9 Hematuria, unspecified; I48.91 Unspecified atrial fibrillation; J90 Pleural effusion, not elsewhere classified; N18.9 Chronic kidney disease, unspecified; N20.0 Calculus of kidney; N40.0 Benign prostatic hyperplasia without lower urinary tract symptoms; Z79.01 Long term (current) use of anticoagulants; Z79.899 Other long term (current) drug therapy; Z87.440 Personal history of urinary (tract) infections
CPT/HCPCS: 99291; 74176; 96361; 85025; 80048; 81001 ×2; 36415; 85730; 96365; 87086; A4217 ×2; J0696; 87186-TC